=== PATIENT | female | born 1955 | race Caucasian/White ===

== ENCOUNTER → 2022-03-27 09:49 | Outpatient (BNVA) | payer MEDICARE, SELFPAY | PROVIDERS: Visit Provider Orthopaedic Surgery | DX: M43.16 Spondylolisthesis, lumbar region (principal); M48.00 Spinal stenosis, site unspecified | CPT/HCPCS: 72110; 99204 ==

== ENCOUNTER → 2022-04-01 09:36 | Outpatient (BNVA) | payer MEDICARE, SELFPAY | PROVIDERS: Visit Provider Nurse Practitioner Family | DX: I10 Essential (primary) hypertension (principal); E11.9 Type 2 diabetes mellitus without complications | CPT/HCPCS: 80053; 80061; 83036; 84439; 84443; 84480; 84481; 85025 ==

== ENCOUNTER 2022-05-13 09:38 | Outpatient (CLI) | payer OTHER, SELFPAY ==
--- NOTE | 2022-05-13 09:30 | MR_ITS ---
WS: [id number] MRI LUMBAR SPINE NONCONTRAST HISTORY: M43.16 - Spondylolisthesis, lumbar region COMPARISON: 08/14/2019 TECHNIQUE: Sagittal and axial multisequence imaging is submitted. Slight increase in thoracic kyphosis. Increased lumbar lordosis. L4 anterolisthesis by 5 mm. Mild disc desiccation throughout the lumbar spine. No fractures or marrow edema. Conus terminates normally at L1-2 disc level. L1-L2: Mild disc bulging and facet joint arthritis. L2-L3: Moderate annular disc bulging with moderate ligamentum flavum hypertrophy and facet arthritis. Encroachment upon the ventral thecal sac. Mild central and bilateral subarticular recess narrowing. Slightly greater encroachment upon the RIGHT traversing L3 nerve root. L3-L4: Diffuse annular disc bulging with mild ligamentum flavum and facet arthritis. Mild central and bilateral subarticular recess stenosis. L4-L5: Unroofing of the disc with moderate ligamentum flavum and facet arthritis. Osteophyte encroach ment and facet joint arthritis encroaching into the thecal sac. Severe central and bilateral subartic ular recess stenosis. Only mild foraminal stenosis. There is significant disc contact and facet conta ct on the traversing L5 nerve roots. L5-S1: Diffuse annular disc bulging. Mild central and moderate bilateral subarticular recess and mild foraminal stenosis. Most significant contact on the traversing S1 nerve roots. RIGHT parapelvic cyst measures 2.2 x 2.1 cm. Very similar size to the prior study of 08/16/2019 MR/MR lumbar spine wo con* [id number] IMPRESSION: 1. Grade 1 L4 spondylolisthesis. 2. Severe central and bilateral subarticular recess stenosis at L4-5. 3. Moderate bilateral subarticular recess stenosis at L5-S1 with mild central and foraminal stenosis. 4. Mild central and bilateral subarticular recess stenosis at L2-3 and L3-4.
== END 2022-05-13 09:39 | disposition home or self-care (01) ==
LOC: RAD 09:38
PROVIDERS: Visit Provider Orthopaedic Surgery
DX: M43.16 Spondylolisthesis, lumbar region (principal)
CPT/HCPCS: 72148

== ENCOUNTER 2022-05-13 10:33 | Outpatient (CLI) | payer MEDICARE, OTHER, SELFPAY ==
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
== END 2022-05-13 10:34 | disposition home or self-care (01) ==
PROVIDERS: Visit Provider Nurse Practitioner Family
DX: M54.6 Pain in thoracic spine (principal); S20.219A Contusion of unspecified front wall of thorax, initial encounter; V87.7XXA Person injured in collision between other specified motor vehicles (traffic), initial encounter; R06.02 Shortness of breath; R07.81 Pleurodynia
CPT/HCPCS: 71046; 71110; 72072

== ENCOUNTER → 2022-07-02 09:33 | Outpatient (BNVA) | payer MEDICARE, SELFPAY | PROVIDERS: Visit Provider Nurse Practitioner Family | DX: E11.9 Type 2 diabetes mellitus without complications (principal) | CPT/HCPCS: 83036 ==

== ENCOUNTER → 2022-09-25 13:32 | Outpatient (BNVA) | payer MEDICARE, SELFPAY | PROVIDERS: Visit Provider Nurse Practitioner Family | DX: R05.9 Cough, unspecified (principal); R50.9 Fever, unspecified | CPT/HCPCS: 87400 ==

== ENCOUNTER → 2022-10-03 11:42 | Outpatient (BNVA) | payer MEDICARE, SELFPAY | PROVIDERS: Visit Provider Nurse Practitioner Family | DX: I10 Essential (primary) hypertension (principal); E11.9 Type 2 diabetes mellitus without complications; R09.89 Other specified symptoms and signs involving the circulatory and respiratory systems; R05.9 Cough, unspecified | CPT/HCPCS: 71046; 80053; 80061; 83036 ==

== ENCOUNTER → 2023-02-26 15:35 | Outpatient (BNVA) | payer MEDICARE, MEDICAID, SELFPAY | PROVIDERS: PCP Nurse Practitioner Family; Visit Provider Nurse Practitioner Family | DX: E11.9 Type 2 diabetes mellitus without complications (principal); I10 Essential (primary) hypertension; Z68.33 Body mass index [BMI] 33.0-33.9, adult | CPT/HCPCS: 83036 ==